=== PATIENT | male | born 1990 | race Two or more races ===

== ENCOUNTER 2023-03-28 09:58 | Emergency (ER) | payer OTHER, SELFPAY ==
[2023-03-28 10:06] VITALS: BP 125/75; PULSE 69; RESP 16; TEMP 37.4; O2SAT 99; BMI 28.5
--- NOTE | 2023-03-28 10:13 | ECG_ITS ---
Test Reason : dizziness Blood Pressure : / mmHG Vent. Rate : 065 BPM Atrial Rate : 065 BPM P-R Int : 178 ms QRS Dur : 092 ms QT Int : 368 ms P-R-T Axes : 054 075 053 degrees QTc Int : 382 ms Normal sinus rhythm Normal ECG When compared with ECG of 03-FEB-2008 02:36, No significant change was found Referred By: Generic ED Physician Electronically Signed By:PRASHANT CLEMENTS
[2023-03-28 10:28] LABS: MANUAL DIFF FLAG NO
[2023-03-28 10:30] LABS: Basophils Percent Auto 0.5 % (0-2); Eosinophils Absolute Auto 0.2 X10*3/uL (0.0-0.4); Eosinophils Percent Auto 2.3 % (0-4); Hematocrit 42.9 % (42.0-52.0); Hemoglobin 14.7 g/dl (14.0-18.0); Imm Gran Abs Auto 0.03 X10*3/uL (0.00-0.03); Imm Gran Pct Auto 0.4 % (0.0-0.4); Lymphocytes Absolute Auto 1.7 X10*3/uL (1.2-4.9); Lymphocytes Percent Auto 22.3 % (20-40); Mean Corpuscular HGB Conc 34.3 g/dl (31.0-36.0); Mean Corpuscular Hemoglobin 30.3 pg (27.0-33.0); Mean Corpuscular Volume 88.5 fL (80.0-98.0); Mean Platelet Volume 8.9 fL (9.4-12.4); Monocytes Absolute Auto 0.6 X10*3/uL (0.1-1.2); Monocytes Percent Auto 7.7 % (2-11); Neutrophils Absolute Auto 4.9 x10*3/uL (2.0-8.3); Neutrophils Percent Auto 66.8 % (45-73); Platelet Count 255 X10*3/uL (160-400); Red Blood Count 4.85 X10*6/uL (4.60-5.80); Red Cell Distribution Width 12.2 % (11.0-16.0); White Blood Count 7.4 X10*3/uL (4.8-10.8)
--- NOTE | 2023-03-28 10:33 | ED_ITS ---
HPI - Dizziness General Chief Complaint: Dizziness Stated Complaint: dizziness Time Seen by Provider: 03/28/23 10:26 Source: patient Mode of arrival: ambulatory Limitations: no limitations History of Present Illness HPI Narrative: 32-year-old male with no past medical history presents to ED today for 1-day history of dizziness. Patient states he woke up yesterday and went to get up when the dizziness began. Episodes last 10 seconds. Reports that it is worse with positional changes, such as laying down and turning on his side. Reports double vision when episodes occur. Reports postocular headache. Denies any p hotophobia, syncope, tinnitus, or pressure in his ears. Denies recent swimming. Reports that this is the first time this has happened to him. MD elicited complaint: dizziness, difficulty walking and vertigo Onset (ago): day(s) Timing: sudden onset, awoke with symptoms and intermittent Description: room spinning , off-balance and difficulty walking Context: change in body position History of similar symptoms: No Exacerbating factors: change in body position, keeping eyes closed and position/lying down Relieving factors: remaining still Associated symptoms: denies other symptoms Associated neuro symptoms: diplopia and vision changes Related Data Previous Rx's Medication Instructions Recorded meclizine 25 mg tablet 25 mg PO TID PRN dizziness #10 tabs 03/28/23 Allergies Allergy/AdvReac Type Severity Reaction Status Date / Time No Known Allergies Allergy Verified 03/28/23 10:05 [facility] Social History Social History Advance Directives: No Advance Directives Information Provided: No Physical Exam Vital Signs: Vital Signs: Last Vital Signs Temp 99.4 F 03/28/23 10:06 Pulse 69 03/28/23 10:06 Resp 16 03/28/23 10:06 BP 125/75 03/28/23 10:06 Pulse Ox 99 03/28/23 10:06 O2 Del Method Room Air 03/28/23 10:06 BMI result Body Mass Index 28.5 Const: General: cooperative, healthy appearing, comfortable and no acute distress Orientation/consciousness: patient oriented x3 Limitations: no limitations HEENT: Head: Yes normal to inspection, Yes normocephalic and Yes atraumatic Ears: hearing grossly normal bilaterally Face and sinus: Yes normal facial exam Eyes: General: appearance normal, both eyes and all related structures Pupils: Equal, round and reactive pupils present EOM: EOMs intact bilaterally Direct Ophthalmoscopy: normal light reflex and no photophobia Resp: Effort & Inspection: normal respiratory effort and able to speak in complete sentences Cardio: Rate: regular rate Rhythm: regular rhythm Neuro: General: patient oriented x3 Cranial nerves: Yes CN's II-XII intact bilaterally, Yes Equal, round and reactive pupils present and Yes Nystagmus not present Cognition (Neuro): normal cognition Coordination: [id number] test normal and [id number] test normal Course Course Course Narrative: Obtained EKG. Obtained labs including CBC with differential, chemistry. Performed Kimi maneuver. Prescribed meclizine for dizziness. Provided information about vertigo and ways to minimize dizziness. Provided excuse note for work. Medical Decision Making Medical Decision Making [facility] Narrative: 32-year-old with no past medical history presents with 1 day history of dizziness. Physical exam including neurological exam was unremarkable. Obtained EKG and baseline labs to rule out any arrhythmia, anemia, electrolyte imbalance or dehydration. Obtained urinalysis to rule out infection. lab workup and EKG unremarkable. no nystagmus. Eply performed. no current symptoms stable for discharge home w/ PRN meclizine Differential Diagnosis Differential Diagnoses: The differential diagnosis associated with the presentation includes BPPV, central vertigo, viral syndrome, dehydration, anemia, less likely, cerebel lar stroke, hypotension, atrial fibrillation Lab Data [facility] Lab Attestation statement: I reviewed the patient's lab results. no anemia 03/28/23 10:24 03/28/23 10:24 Labs: Lab Results 03/28/23 03/28/23 03/28/23 Range/Units 10:24 10:24 11:20 WBC 7.4 (4.8-10.8) X10*3/uL RBC 4.85 (4.60-5.80) X10*6/uL Hgb 14.7 (14.0-18.0) g/dl Hct 42.9 (42.0-52.0) % MCV 88.5 (80.0-98.0) fL MCH 30.3 (27.0-33.0) pg MCHC 34.3 (31.0-36.0) g/dl RDW 12.2 (11.0-16.0) % Plt Count 255 (160-400) X10*3/uL MPV 8.9 L (9.4-12.4) fL Immature Gran % (Auto) 0.4 (0.0-0.4) % Neut % (Auto) 66.8 (45-73) % Lymph % (Auto) 22.3 (20-40) % [place] % (Auto) 7.7 (2-11) % Eos % (Auto) 2.3 (0-4) % Baso % (Auto) 0.5 (0-2) % Lymph # (Auto) 1.7 (1.2-4.9) X10*3/uL [place] # (Auto) 0.6 (0.1-1.2) X10*3/uL Eos # (Auto) 0.2 (0.0-0.4) X10*3/uL Baso # (Auto) 0.0 (0.0-0.2) X10*3/uL Abs Immat Gran (auto) 0.03 (0.00-0.03) X10*3/uL Absolute Neuts (auto) 4.9 (2.0-8.3) x10*3/uL Absolute Nucleated RBC 0.000 (0.0-0.012) X10*3/uL Nucleated RBC % (auto) 0.0 (0.0-0.2) /100WBC Sodium 140 (135-145) mmol/L Potassium 4.1 (3.3-5.1) mmol/L Chloride 107 (96-108) mmol/L Carbon Dioxide 27 (22-29) mmol/L Anion Gap 10 L (12-20) BUN 19 H (9-16) mg/dL Creatinine 1.09 (0.5-1.4) mg/dL Estim Creat Clear Calc 104.6 Estimated GFR > 60 Random Glucose 97 (60-115) mg/dL Calcium 9.3 (8.4-10.2) mg/dL Total Bilirubin 0.6 (0.0-1.0) mg/dL AST 23 (5-37) U/L ALT 31 (0-40) U/L Alkaline Phosphatase 84 (39-117) U/L Total Protein 7.2 (6.5-8.0) g/dL Albumin 4.2 (3.5-5.0) g/dL Urine Color Yellow Urine Appearance Clear Urine pH 7.0 (5.0-9.0) Ur Specific Solomon 1.015 (1.005-1.025) Urine Protein Negative (Neg-Trace) mg/dL Urine Glucose (UA) Negative (Negative) mg/dL Urine Ketones Negative (Negative) mg/dL Urine Blood Negative (Negative) Urine Nitrite Negative (Negative) Ur Leukocyte Esterase Negative (Negative) Independent Interpretation I performed an independent interpretation of an: EKG Interpretation: ekg with normal sinus rhythm, HR 65 bpm, peaked t waves in the precordial leads similar to prior, no ST segment elevations or depressions Tests considered The following testing was considered but not selected: considered CT scan of the head, but exam unremarkable Prescription Management I considered prescription management with: Other (meclizine) Critical Care Time Critical Care Time Critical Care Time: No Discharge Plan Discharge Clinical Impression: Dizziness Patient Disposition: Home, Self-Care Instructions: Vertigo (DC), Dizziness (ED) Additional Instructions: your lab workup was unremarkable rest and stay hydrated when you change positions, do so slowly take the prescribed medication if you experience recurrent dizzinesss If you develop new or worsening symptoms call 911 or come back to the ER for further evaluation. Prescriptions: New meclizine 25 mg tablet 25 mg PO TID PRN (Reason: dizziness) Qty: 10 0RF Referrals: Francia Lisa MD [Primary Care Provider] - Stand Alone Forms: Work/School Release Interventions: ED Discharge Assessment Last Done: 03/28/23 11:26 Discharge Date/Time: 03/28/23 11:28
[2023-03-28 10:59] LABS: Alanine Aminotransferase 31 U/L (0-40); Albumin Level 4.2 g/dL (3.5-5.0); Alkaline Phosphatase 84 U/L (39-117); Anion Gap 10 (12-20); Aspartate Amino Transferase 23 U/L (5-37); Bilirubin Total 0.6 mg/dL (0.0-1.0); Blood Urea Nitrogen 19 mg/dL (9-16); Calcium 9.3 mg/dL (8.4-10.2); Carbon Dioxide 27 mmol/L (22-29); Chloride 107 mmol/L (96-108); Creatinine Clr Calc Pharmacy 104.6; Estimated Glomerular Filt Rate > 60; Glucose Random 97 mg/dL (60-115); Potassium 4.1 mmol/L (3.3-5.1); Sodium 140 mmol/L (135-145); Total Protein 7.2 g/dL (6.5-8.0)
--- NOTE | 2023-03-28 11:23 | MHC.EDTECH ---
Urine collected and sent to lab
[2023-03-28 11:34] LABS: Appearance Urine Clear; Color Urine Yellow; Glucose Urine UA Negative (Negative); Leukocyte Esterase Urine Negative (Negative); Nitrite Urine Negative (Negative); Specific Gravity - Urine 1.015 (1.005-1.025); Urine Blood Negative (Negative); Urine Ketones Negative (Negative); Urine Protein Negative (Neg-Trace)
== END 2023-03-28 11:28 | disposition home or self-care (01) ==
PROVIDERS: Emergency Provider Emergency Medicine; PCP Internal Medicine
DX: R42 Dizziness and giddiness (principal); H53.2 Diplopia; Z79.899 Other long term (current) drug therapy
CPT/HCPCS: 36415; 80053; 81003; 85025; 93005; 99283

== ENCOUNTER 2024-09-24 14:13 | Outpatient (AMB) | payer OTHER, SELFPAY ==
--- NOTE | 2024-09-24 14:44 | A.OFFPC_ITS ---
Vital Signs 09/24/24 14:46 Height 5 ft 7.52 in Weight 197 lb 4 oz BMI 30.4 BP 110/66 Blood Pressure Location Lt brachial Position Sitting Pulse 70 Pulse Source Pulse Oximeter Temp 97.3 F Temp Source Temporal Artery Scan Pulse Oximetry (%) 100 Oxygen Delivery Method Room Air Intake Visit Reasons: establish care Intake Note: Patient is a new patient here to establish care for Wellness Visit. Transferring care from Unknown. Medical records have not been requested and have not received. [employer] Required: No Inspector: Not Required per policy Accompanied by: Self / Same As Patient Allergies No Known Allergies Allergy (Verified 09/24/24 15:18) Medication List - Last Reconciled 09/24/24 by Ana Estevez PA-C No Known Home Meds Tobacco use date assessed: 09/24/24 Dental Screening Dental Screen Date: 09/24/24 Did you have a dental visit in the last 12 months?: Yes Did you have a dental problem in the last 6 months where you did not have access to dental care?: No Was dental information given to patient?: Patient has dentist HPI establish care HPI Details 33 year old male coming to the office fo r the first time. Patient tells us today he was previoulsy [place] [facility] [place] and has not been seen in the meatime. He does smoke cigarettes and has been cutting back is now down to 1/2 pack per day down from 2 packs per day. He has been using mints to break his habit. He does have a few concerns today the first being congestion and runny nose which started after he moved here from [place]. He has been using topical decongestants daily for this concern. He also mentioned having difficulty sleeping and has been using melatonin without good relief. He does work nights so he finds it difficult to fall asleep when he gets home. 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 1. Little interest or pleasure in doing things: not at all 2. Feeling down, depressed, or hopeless: not at all 3. Trouble falling or staying asleep, or sleeping too much: not at all 4. Feeling tired or having little energy: not at all 5. Poor appetite or overeating: not at all 6. Feeling bad about yourself - or that you are a failure or have let yourself or your family down: not at all 7. Trouble concentrating on things, such as reading the newspaper or watching television: not at all 8. Moving or speaking so slowly that other people could have noticed. Or the opposite - being so fidgety or restless that you have been moving around a lot more than usual: not at all 9. Thoughts that you would be better off or of hurting yourself in some way: not at all Total score: 0 Depression Screening Interpretation: Negative Depression Screening Done: Yes Source: Developed by Drs. Tony Anna, Patricia Ibarra, Robson Gómez and colleagues, with an educational tomer from [employer]. Thrive Questionnaire Date Thrive assessed: 09/24/24 I am a: Patient What is your living situation today?: I have a steady place to live Within the past 12 months, did the food you bought not last and you didn't have the money to get more?: Never true Within the past 12 months, did you worry whether your food would run out before you got money to buy more?: Never true Do you have trouble paying for medicines?: No Do you have trouble getting transportation to medical appointments?: No Do you have trouble paying your heating and electricity bill?: No Do you have trouble taking care of your child, family member or friend?: No Do you have trouble with day-to-day activities such as bathing, preparing meals, shopping, managing finances, etc.?: No Are you currently unemployed and looking for a job?: Yes Are you interested in more education?: No Please select the resources that you would like help with: None Currently or been in a relationship where the following occur: I choose not to answer THRIVE Score: 0 AUDIT C Alcohol Use Questionnaire (AUDIT-C) 1. How often do you have a drink containing alcohol?: 2-4 times a month 2. How many drinks containing alcohol do you have on a typical day when you are drinking?: 3 or 4 3. How often do you have six or more drinks on one occasion?: Monthly Total Score: 5 Score Reviewed/Action Taken: Yes GWEN-7 AMB Questionnaire GWEN-7 Date GWEN - 7 assessed: 09/24/24 Feeling nervous, anxious, or on edge: 0 = Not at all Not being able to stop or control worryin = Not at all Worrying too much about different things: 0 = Not at all Trouble relaxin = Not at all Being so restless that it is hard to sit still: 0 = Not at all Becoming easily annoyed or irritable: 0 = Not at all Feeling afraid as if something awful might happen: 0 = Not at all Total GWEN-7 score (0-4 normal; 5-9 mild; 10-14 moderate; 15-21 severe): 0 Source: Developed by Drs. Tony Anna, Patricia Ibarra, Robson Gómez and colleagues, with an educational tomer from [employer]. Review of Systems Const Denies body aches, Denies chills, Reports fatigue, Denies fever(s), Denies headache(s) and Denies poor appetite Eyes Reports no additional complaints ENT Denies dysphagia, Denies dizziness, Denies headache(s), Reports nasal congestion, Reports nasal discharge, Denies odynophagia and Reports post nasal drip Card Denies chest pain, Denies syncope, Denies edema, Denies irregular heart rhythm, Denies lightheadedness and Denies dyspnea Resp Denies cough and Denies dyspnea GI Denies abdominal pain, Denies dysphagia, Reports heartburn, Denies nausea, Denies odynophagia and Denies vomiting Reports no additional complaints Musc Reports no additional complaints and Denies abnormal gait Skin/Breast Reports system reviewed and no additional complaints, except as documented Neuro Denies abnormal gait, Denies dizziness, Denies syncope and Denies headache(s) Psych Reports no additional complaints Endo Reports fatigue Physical exam (Primary Care) Vital Signs: Last Vital Signs Temp 97.3 F 09/24/24 14:46 Pulse 70 09/24/24 14:46 BP 110/66 09/24/24 14:46 Pulse Ox 100 09/24/24 14:46 Oxygen Delivery Method Room Air 09/24/24 14:46 BMI result Body Mass Index 30.4 Tobacco/Smoking Status: Tobacco use Status Tobacco use date assessed 09/24/24 09/24/24 14:54 Patient Tobacco Use Status Current everyday Tobacco 09/24/24 14:54 Tobacco use type Cigarette 09/24/24 14:54 e-Cigarette/Vaping Use Never Used 09/24/24 14:54 Tobacco cessation counseling provided: Yes Items discussed: Nicotine replacement Relapse Prevention: discussed extending NRT and discussed dietary, exercise and/or lifestyle changes Number of minutes spent counselin CPT code: 68305 - 4-10 Minutes PHQ-9: PHQ-9 Score PHQ-9: Total score 0 09/24/24 15:14 Depression Screening Interpretation: Negative Thrive Assessment: Date of Thrive Assessment Date Thrive assessed 09/24/24 09/24/24 14:54 Currently or been in a relationship where the following occur: I choose not to answer Const General: cooperative, healthy appearing, comfortable and no acute distress Orientation/consciousness: patient oriented x3 HENMT Head: Yes normocephalic Ears: hearing grossly normal bilaterally General nose exam: Normal external nose present Eyes General: appearance normal, both eyes and all related structures Conjunctivae: conjunctivae normal Neck Neck: Yes full ROM and Yes no lymphadenopathy Resp Effort & Inspection: normal respiratory effort Auscultation: clear to auscultation bilaterally, no crackles, no rales, no rhonchi and no wheezes Cardio Rate: regular rate Rhythm: regular rhythm Skin General skin exam: no rashes or lesions noted Neuro General: patient oriented x3 Gait exam (Neuro): Normal gait present Extrem General: Yes normal to inspection, Yes full ROM and No edema Psych Affect: normal affect Attitude: cooperative Insight: Good insight present (Psych) Judgement: Good judgement present (Psych) Coding Level of Care Code New Pt Level 4 (84241) Diagnoses Tobacco abuse Z72.0 Sinus congestion R09.81 GERD (gastroesophageal reflux disease) K21.9 Screening for hypercholesterolemia Z13.220 Insomnia G47.00 Additional Codes Vital Signs *Quality* - CPT code: 69504 - 4-10 Minutes ([id number]) Assessment & Plan Assessment & Plan (1) Tobacco abuse: Code(s): Z72.0 - Tobacco use Category: Medical Plan: Smoking cigarettes and the use of tobacco can be harmful. We discussed the importance of stopping and options to aid in smoking cessation. Plan to try nicotine gum as replacement therapy. (2) Sinus congestion: Code(s): R09.81 - Nasal congestion Category: Medical Plan: Advised patient to discontinue the use of topical decongestants as it is not ad vised to use this more than 3 days at a time. Plan to start on Zyrtec and Flonase daily and can consider referral to ear nose and throat or blanket inspector. (3) GERD (gastroesophageal reflux disease): Code(s): K21.9 - Gastro-esophageal reflux disease without esophagitis Category: Medical Plan: Avoid trigger foods such as citrus, tomato products, soda, caffeine, spicy foods and other foods that may be irritating to your stomach. Avoid laying flat 3-4 hours after eating and elevate the head of the bed 30 degrees to prevent acid from moving into the esophagus. Continue on Tums as needed. (4) Screening for hypercholesterolemia: Code(s): Z13.220 - Encounter for screening for lipoid disorders Category: Medical Plan: Orders placed. (5) Insomnia: Code(s): G47.00 - Insomnia, unspecified Category: Medical Plan: Patient having difficulty falling asleep states he has difficulty ?quieting his mind?. Plan to try hydroxyzine as needed at bedtime for sleep. Plan Blood work ordered plan to follow up in 3 months for annual exam. This note was constructed using voice recognition software. While every effort has been made to ensure accuracy and decorating supervisor, still areas may have been included sometimes these areas may affect the content or meeting of the given symptoms. Total time spent caring for the patient today was 30 minutes. This includes time spent before the visit reviewing the chart, time spent during the visit, and time spent after the visit and documentation. Orders: Orders Comprehensive Met. Panel 09/24/24 Z00.00 - Encounter for general adult medical examination without abnormal findings Free T4 (Free Thyroxine) 09/24/24 Z00.00 - Encounter for general adult medical examination without abnormal findings Complete Blood Count Auto Diff 09/24/24 Z00.00 - Encounter for general adult medical examination without abnormal findings TSH reflex Free T4 09/24/24 Z00.00 - Encounter for general adult medical examination without abnormal findings Vitamin B12 and Folate 09/24/24 Z00.00 - Encounter for general adult medical examination without abnormal findings Vitamin D 25-OH Total 09/24/24 Z00.00 - Encounter for general adult medical examination without abnormal findings Lipid Panel 09/24/24 Z13.220 - Encounter for screening for lipoid disorders Medications: New nicotine (polacrilex) 2 mg buccal Q8H PRN 72 ea 0RF nicotine cravings hydroxyzine HCl 25 mg PO BEDTIME 30 tabs 1RF fluticasone propionate 50 mcg/actuation (Flonase Allergy Relief) administer into each nostril 1 spray intranasal DAILY 16 grams 1RF fexofenadine 180 mg PO DAILY 90 tabs 0RF Discontinued meclizine Discontinued Reason: Patient Completed Course 25 mg PO TID PRN 10 tabs 0RF dizziness
[2024-09-24 14:46] VITALS: BP 110/66; PULSE 70; TEMP 36.3; O2SAT 100; BMI 30.4
== END 2024-09-24 15:35 | disposition home or self-care (01) ==
DX: Z72.0 Tobacco use (principal); R09.81 Nasal congestion; K21.9 Gastro-esophageal reflux disease without esophagitis; Z13.220 Encounter for screening for lipoid disorders; G47.00 Insomnia, unspecified

== ENCOUNTER 2024-11-19 09:31 | Outpatient (REF) | payer OTHER, SELFPAY ==
[2024-11-19 09:44] LABS: MANUAL DIFF FLAG NO
[2024-11-19 09:59] LABS: Basophils Percent Auto 0.5 % (0-2); Eosinophils Absolute Auto 0.3 X10*3/uL (0.0-0.4); Eosinophils Percent Auto 3.3 % (0-4); Hematocrit 43.9 % (42.0-52.0); Hemoglobin 14.5 g/dl (14.0-18.0); Imm Gran Abs Auto 0.02 X10*3/uL (0.00-0.03); Imm Gran Pct Auto 0.3 % (0.0-0.4); Lymphocytes Absolute Auto 2.6 X10*3/uL (1.2-4.9); Lymphocytes Percent Auto 33.7 % (20-40); Mean Corpuscular Hemoglobin 29.6 pg (27.0-33.0); Mean Corpuscular Volume 89.6 fL (80.0-98.0); Mean Platelet Volume 9.1 fL (9.4-12.4); Monocytes Absolute Auto 0.7 X10*3/uL (0.1-1.2); Monocytes Percent Auto 9.2 % (2-11); Neutrophils Absolute Auto 4.1 x10*3/uL (2.0-8.3); Platelet Count 258 X10*3/uL (160-400); Red Cell Distribution Width 12.3 % (11.0-16.0); White Blood Count 7.8 X10*3/uL (4.8-10.8)
[2024-11-19 10:47] LABS: Alanine Aminotransferase 46 U/L (0-40); Albumin Level 4.3 g/dL (3.5-5.0); Alkaline Phosphatase 87 U/L (39-117); Anion Gap 12 (12-20); Aspartate Amino Transferase 30 U/L (5-37); Bilirubin Total 0.4 mg/dL (0.0-1.0); Blood Urea Nitrogen 25 mg/dL (9-16); Calcium 9.4 mg/dL (8.4-10.2); Carbon Dioxide 27 mmol/L (22-29); Chloride 107 mmol/L (96-108); Cholesterol 177 mg/dL (<200); Estimated Glomerular Filt Rate > 60; Glucose Random 99 mg/dL (60-115); HDL Cholesterol 41 mg/dL (>40); LDL Cholesterol Calculated 113 mg/dL (<100); Potassium 4.3 mmol/L (3.3-5.1); Sodium 142 mmol/L (135-145); Total Protein 6.9 g/dL (6.5-8.0); Triglycerides 116 mg/dL (<150)
[2024-11-19 10:55] LABS: Free T4 (Free Thyroxine) 0.92 ng/dL (0.71-1.85); TSH reflex Free T4 0.54 uIU/mL (0.32-4.0); Vitamin D 25-OH Total 29.5 ng/mL (>30)
[2024-11-19 11:14] LABS: Folate 12.4 ng/mL (> or = 4.0); Vitamin B12 1063 pg/mL (200-900)
== END 2024-11-19 09:32 | disposition home or self-care (01) ==
LOC: HO.LAB 09:31
DX: Z00.00 Encounter for general adult medical examination without abnormal findings (principal); Z13.220 Encounter for screening for lipoid disorders; Z13.6 Encounter for screening for cardiovascular disorders
CPT/HCPCS: 36415; 80053; 80061; 82306; 82607; 82746; 84439; 84443; 85025

== ENCOUNTER 2024-12-25 14:43 | Outpatient (AMB) | payer OTHER, SELFPAY ==
--- NOTE | 2024-12-25 14:46 | MHC.PC.OV ---
Vital Signs 12/25/24 14:47 Height 5 ft 7.52 in Weight 187 lb 8 oz BMI 28.9 BP 126/72 Blood Pressure Location Lt brachial Position Sitting Pulse 75 Pulse Source Pulse Oximeter Temp 97.3 F Temp Source Temporal Artery Scan Pulse Oximetry (%) 98 Oxygen Delivery Method Room Air Intake Visit Reasons: annual exam Intake Note: Patient is here today for a physical. 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: No Child Support Case Officer: Not Required per policy Accompanied by: Self / Same As Patient Allergies No Known Allergies Allergy (Verified 12/25/24 14:50) Medication List - Last Reconciled 12/25/24 by Ana Estevez PA-C cholecalciferol (vitamin D3) 25 mcg PO DAILY fexofenadine 180 mg PO DAILY fluticasone propionate 50 mcg/actuation 1 spray intranasal DAILY hydroxyzine HCl 25 mg PO BEDTIME nicotine (polacrilex) 2 mg buccal Q8H PRN Tobacco use date assessed: 12/25/24 Dental Screening Dental Screen Date: 09/24/24 HPI annual exam HPI Details 34-year-old male with past medical history of GERD, tobacco abuse, insomnia last seen 09/2024 coming in for annual exam. Presenting for an annual examination with several ongoing health concerns. His primary complaint includes chronic low back pain, which has worsened recently, leading to numbness and tingling in the legs and impacting work and daily activities. He has made dietary changes to facilitate weight loss, losing 10 pounds since the previous visit. The patient admits to a history of smoking, though he has reduced his intake with the help of nicotine lozenges. Laboratory findings indicate slightly elevated cholesterol and liver enzymes. The patient experiences sleep disturbances, which he correlates with leg pain. He is managing gastroesophageal reflux disease effectively with Prilosec and denies other gastrointestinal symptoms. 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 Cognitive needs: No Hearing needs: No Vision needs: No Questionnaire Thrive Questionnaire Date Thrive assessed: 09/24/24 I am a: Patient What is your living situation today?: I have a steady place to live Within the past 12 months, did the food you bought not last and you didn't have the money to get more?: Never true Within the past 12 months, did you worry whether your food would run out before you got money to buy more?: Never true Do you have trouble paying for medicines?: No Do you have trouble getting transportation to medical appointments?: No Do you have trouble paying your heating and electricity bill?: No Do you have trouble taking care of your child, family member or friend?: No Do you have trouble with day-to-day activities such as bathing, preparing meals, shopping, managing finances, etc.?: No Are you currently unemployed and looking for a job?: Yes Are you interested in more education?: No Please select the resources that you would like help with: None Currently or been in a relationship where the following occur: I choose not to answer THRIVE Score: 0 GWEN-7 AMB Questionnaire GWEN-7 Date GWEN - 7 assessed: 09/24/24 Source: Developed by Drs. Tony Anna, Patricia Ibarra, Robson Gómez and colleagues, with an educational tomer from [employer] Review of Systems Const Denies body aches, Denies fatigue, Denies fever(s), Denies frequent falls, Denies headache(s) and Denies weakness Eyes Reports no additional complaints and Denies change in vision ENT Denies dizziness, Denies facial pain, Denies headache(s) and Denies nasal congestion Card Denies chest pain, Denies syncope, Denies irregular heart rhythm, Denies leg edema, Denies lightheadedness and Denies dyspnea Resp Denies cough and Denies dyspnea GI Denies abdominal pain, Denies constipation, Reports dyspepsia, Reports heartburn, Denies diarrhea, Denies nausea and Denies vomiting Denies dysuria, Denies urinary frequency, Denies urinary hesitancy and Denies urinary urgency Musc Reports as per HPI, Reports back pain and Denies myalgias Skin/Breast Reports system reviewed and no additional complaints, except as documented Neuro Denies dizziness, Denies syncope, Denies frequent falls, Denies headache(s) and Denies weakness Psych Reports no additional complaints Endo Denies fatigue Physical exam (Primary Care) Vital Signs: Last Vital Signs Temp 97.3 F 12/25/24 14:47 Oxygen Delivery Method Room Air 12/25/24 14:47 BMI result Body Mass Index 28.9 Tobacco/Smoking Status: Tobacco use Status Tobacco use date assessed 09/24/24 09/24/24 15:34 Patient Tobacco Use Status Current everyday Tobacco 09/24/24 15:34 Tobacco use type Cigarette 09/24/24 15:34 e-Cigarette/Vaping Use Never Used 09/24/24 15:34 Thrive Assessment: Date of Thrive Assessment Date Thrive assessed 09/24/24 09/24/24 15:34 Currently or been in a relationship where the following occur: I choose not to answer Const General: cooperative, healthy appearing, comfortable and no acute distress Orientation/consciousness: patient oriented x3 HENMT Head: Yes normocephalic Ears: hearing grossly normal bilaterally, external ears normal, TM's normal bilaterally and EAC's normal General nose exam: Normal external nose present Face and sinus: Yes normal facial exam and Yes sinuses nontender Mouth: Normal oral and palatal mucosa present and tongue normal Throat: Yes posterior oropharynx normal Eyes General: appearance normal, both eyes and all related structures Conjunctivae: conjunctivae normal Pupils: Equal, round and reactive pupils present EOM: EOMs intact bilaterally and No Nystagmus present Neck Neck: Yes normal visual inspection, Yes full ROM and Yes no lymphadenopathy Chest Chest palpation & inspection: normal inspection of the chest Resp Effort & Inspection: normal respiratory effort Auscultation: clear to auscultation bilaterally, no crackles, no rales, no rhonchi, no wheezes and breath sounds present Cardio Rate: regular rate Rhythm: regular rhythm Peripheral pulses: radial pulses present and dorsalis pedis present GI Inspection: Yes normal to inspection and No Abdominal wall edema Palpation (GI): Soft to palpation, not firm and nontender Auscultation: normal bowel sounds Rectal Exam - Male: Yes deferred General: Yes no CVA tenderness Back/Spine/Pelvis Other: Tenderness to palpation over lumbar spine and bilateral paraspinal muscles. Positive right straight leg raise test. Intact strength and sensation of bilateral lower extremities. Neurovascularly intact in bilateral lower extremities Back: no CVA tenderness Skin General skin exam: no rashes or lesions noted Neuro General: patient oriented x3 Cranial nerves: Yes Equal, round and reactive pupils present, Yes Midline tongue present, Yes Ability to bilaterally elevate shoulders present and No Nystagmus present Gait exam (Neuro): Normal gait present Extrem General: Yes normal to inspection, Yes full ROM, No no pedal edema and No edema Psych Speech and movement: Normal speech and movement present Affect: normal affect Insight: Good insight present (Psych) Judgement: Good judgement present (Psych) Coding Level of Care Code Est Pt Level 3 (36968) Est Pt Prev Care 18-39y(00556) Diagnoses Annual physical exam Z00.00 Tobacco abuse Z72.0 GERD (gastroesophageal reflux disease) K21.9 Insomnia G47.00 Low back pain M54.50 Elevated LFTs R79.89 Assessment & Plan Assessment & Plan (1) Annual physical exam: Code(s): Z00.00 - Encounter for general adult medical examination without abnormal findings Category: Medical Plan: Patient is up-to-date on all recommended routine screenings and vaccinations for his age. Blood work is up-to-date and has been reviewed with the patient today. (2) Tobacco abuse: Code(s): Z72.0 - Tobacco use Category: Medical Plan: Smoking cigarettes and the use of tobacco can be harmful. We discussed the importance of stopping and options to aid in smoking cessation. Plan to try nicotine gum as replacement therapy. (3) GERD (gastroesophageal reflux disease): Code(s): K21.9 - Gastro-esophageal reflux disease without esophagitis Category: Medical Plan: Avoid trigger foods such as citrus, tomato products, soda, caffeine, spicy foods and other foods that may be irritating to your stomach. Avoid laying flat 3-4 hours after eating and elevate the head of the bed 30 degrees to prevent acid from moving into the esophagus. Prescription sent for omeprazole 20 mg as he has been using [id number] Prilosec. Discussed the appropriate way to take this medication. Strongly advised to stop smoking (4) Insomnia: Code(s): G47.00 - Insomnia, unspecified Category: Medical Plan: Patient was previously using hydroxyzine did not find this beneficial. He has stating that the majority of insomnia comes from low back pain keeping him up at night. Plan to initiate cyclobenzaprine for nighttime pain. Continue to monitors insomnia (5) Low back pain: Code(s): M54.50 - Low back pain, unspecified Category: Medical Plan: Patient having chronic low back pain which he manages with 10s unit. Plan to obtain lumbar spine x-ray for further evaluation and referral was placed to pain management as well. Prescription was sent for cyclobenzaprine to be used only at bedtime and advised patient he can not drive on this medication. Prescription was also sent for lidocaine patches for daytime pain. (6) Elevated LFTs: Code(s): R79.89 - Other specified abnormal findings of blood chemistry Category: Medical Plan: Plan to repeat liver labs. Plan I encouraged the patient to improve hydration to mitigate dehydration effects and enhance kidney function. His low back pain with sciatica symptoms will be evaluated further with diagnostic imaging, and I've planned a referral to Pain Management for potential interventional treatments like injections. I advised that physical therapy could ultimately offer benefits if he's amenable to it. For sleep disturbances, which appear related to pain, I prescribed a muscle relaxer for nighttime use, ensuring it fits within his work constraints. The patient's GERD is well-managed on his current Prilosec prescription, scheduled for daily use to ensure efficacy. Smoking cessation efforts should continue, emphasizing his progress with nicotine lozenges. I will monitor his liver enzymes and cholesterol more closely. Follow-up visits should align with these therapeutic assessments. This note was constructed using voice recognition software. While every effort has been made to ensure accuracy and porcelain slusher, still areas may have been included sometimes these areas may affect the content or meeting of the given symptoms. Total time spent caring for the patient today was 30 minutes. This includes time spent before the visit reviewing the chart, time spent during the visit, and time spent after the visit and documentation. Orders: Orders XR lumbar spine 2-3V Today M54.50 - Low back pain, unspecified Liver Panel Today R79.89 - Other specified abnormal findings of blood chemistry Referrals Pain Management Referral M54.50 - Low back pain, unspecified Medications: New cyclobenzaprine 5 mg PO BEDTIME 30 tabs 0RF omeprazole 20 mg PO DAILY 90 caps 1RF lidocaine 5% leave on most painful area for up to 12 hrs 1 patch topical DAILY 30 ea 0RF Discontinued hydroxyzine HCl Discontinued Reason: Patient no longer taking 25 mg PO BEDTIME 90 tabs 1RF
[2024-12-25 14:47] VITALS: BP 126/72; PULSE 75; TEMP 36.3; O2SAT 98; BMI 28.9
== END 2024-12-25 15:36 | disposition home or self-care (01) ==
LOC: HO.HMCH 14:44
DX: Z00.00 Encounter for general adult medical examination without abnormal findings (principal); K21.9 Gastro-esophageal reflux disease without esophagitis; Z72.0 Tobacco use; G47.00 Insomnia, unspecified; M54.50 Low back pain, unspecified; R79.89 Other specified abnormal findings of blood chemistry

== ENCOUNTER 2025-06-21 18:17 | Emergency (ER) | payer OTHER, SELFPAY ==
--- NOTE | ~2025-06-21 | CT_ITS ---
CLINICAL HISTORY: LLQ tender, rebound CT abdomen and pelvis with contrast Comparison: None provided Findings: Lung bases clear. No acute bony abnormalities. Liver and spleen within normal limits. Pancreas and adrenal glands unremarkable. Gallbladder is within normal limits. No significant focal renal abnormalities. No renal stones or hydronephrosis. Abdominal aorta is normal in caliber. No free fluid or adenopathy in the pelvis. No diverticulitis. Appendix unremarkable. Impression: No acute process This document has been electronically signed by: Jose Randhawa MD on 06/21/2025 22:26:51
[2025-06-21 18:55] VITALS: BP 133/86; PULSE 77; RESP 20; TEMP 37.2; O2SAT 99; BMI 28.7
[2025-06-21 19:39] LABS: Hematocrit 42.2 % (42.0-52.0); Hemoglobin 14.6 g/dl (14.0-18.0); Imm Gran Abs Auto 0.03 X10*3/uL (0.00-0.03); Imm Gran Pct Auto 0.2 % (0.0-0.4); Lymphocytes Absolute Auto 2.2 X10*3/uL (1.2-4.9); MANUAL DIFF FLAG NO; Mean Corpuscular HGB Conc 34.6 g/dl (31.0-36.0); Mean Corpuscular Hemoglobin 30.1 pg (27.0-33.0); Mean Corpuscular Volume 87.0 fL (80.0-98.0); NRBC Abs Auto 0.000 X10*3/uL (0.0-0.012); NRBC Pct Auto 0.0 /100WBC (0.0-0.2); Platelet Count 258 X10*3/uL (160-400); Red Blood Count 4.85 X10*6/uL (4.60-5.80); White Blood Count 12.0 X10*3/uL (4.8-10.8)
--- NOTE | 2025-06-21 19:40 | ED.GENADULT ---
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 Pain worsens when the truck is bouncing. Associated symptoms include nausea, one episode of non-bloody emesis around midnight two days ago, chills (?wakes up freezing?), decreased appetite, and recent upper respiratory symptoms with cough. Denies diarrhea and fever. No dysuria, testicular pain, or hematuria. States urination is normal. Past history notable for prior kidney stones, though current pain does not feel similar. Denies prior surgeries and denies history of diabetes, heart disease, or lung disease. Review of Systems Positive: abdominal pain, nausea, vomiting (single episode), chills, decreased appetite, cough. Negative: diarrhea, fever, dysuria, testicular pain, hematuria. Patient mentions a history of bleeding (context unclear). All other systems not discussed. Related Data Previous Rx's ?Medication ?Instructions ?Recorded nicotine (polacrilex) 2 mg buccal 2 mg buccal Q8H PRN nicotine 09/24/24 lozenge cravings #72 ea fluticasone propionate 50 1 spray intranasal DAILY #48 mL 10/19/24 mcg/actuation nasal spray,suspension cholecalciferol (vitamin D3) 25 25 mcg PO DAILY #90 caps 11/19/24 mcg (1,000 unit) capsule omeprazole 20 mg capsule,delayed 20 mg PO DAILY #90 caps 12/25/24 release cyclobenzaprine 5 mg tablet 5 mg PO BEDTIME #30 tabs 01/21/25 lidocaine 5 % topical patch 1 patch topical DAILY #30 ea 01/21/25 fexofenadine 180 mg tablet 180 mg PO DAILY #90 tabs 03/18/25 Allergies Allergy/AdvReac Type Severity Reaction Status Date / Time No Known Allergies Allergy Verified 06/21/25 18:58 PMFSH Past Medical History Surgical History History of hand surgery Social History Social History Housing: House Alcohol intake: current Alcohol intake frequency: holidays/special occasions only Patient Tobacco Use Status: Current everyday Tobacco user Tobacco use type: Cigarette Cigarette Packs Per Day: 0.25 Cigarettes Per Day: 2 Smoked in Last 30 Days: Yes e-Cigarette/Vaping Use: Never Used Second Hand Smoke Exposure: Yes Use of substances other than those prescribed or required for medical reasons: No Advance Directives: No Advance Directives Information Provided: Yes Do you have a plan to hurt others: No Plan service: No Current occupational status: employed 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 Head: Atraumatic Eyes: Anicteric, Normal conjunctiva. ENT: Moist mucosa, no pallor. ? Neck: Supple. Skin: ?No observable rash or bruising on exposed or examined skin Respiratory: Breathing comfortably, No distress.Clear to auscultation bilaterally, symmetric chest expansion, No wheeze, rales, ronchi. Cardiovascular: Regular rate and rhythm. No murmurs or rub. Well perfused periphery, warm extremities. No edema. ? Abdominal: Moderate lower abdominal tenderness. Soft, no objective distension. No palpable masses or obvious organomegaly. ?No guarding, no rebound tenderness or other peritoneal findings. : No flank tenderness. Neuro: Alert. Gross movement of all extremities intact. ? Psych: Calm. Cooperative. MSK: No grossly visible deformity. Vital signs: See flowsheet Vital Signs: Vital Signs - 24 hr 06/21/25 18:55 06/21/25 20:38 Temperature 99.0 F Pulse Rate 77 68 Respiratory Rate 20 18 Blood Pressure 133/86 127/95 H Pulse Oximetry 99 97 Oxygen Delivery Method Room Air Room Air BMI result Body Mass Index 28.7 Course Course Course Narrative: RmE: 34-year-old male presents to ED for lower abdominal pain bilaterally for couple of days. She denies any genitourinary symptoms. Medications Administered Discontinued Medications Generic Name Dose Route Start Last Admin Trade Name Freq PRN Reason Stop Dose Admin Iohexol 100 ml 06/21/25 21:36 06/21/25 21:36 Iohexol 350 Mg/Ml 100 Ml Infus..Btl IV 06/21/25 21:37 85 ml ONCE ONE Administration Ketorolac Tromethamine 15 mg 06/21/25 20:57 06/21/25 21:31 Ketorolac Tromethamine 15 Mg/Ml Vial IVPUSH 06/21/25 20:58 15 mg ONCE ONE Administration Medical Decision Making Medical Decision Making MDM Narrative: Medical Decision Making: [age] male no surgical history most history kidney stones lower abdominal pain tenderness worsened 3 days. No fever no diarrhea no GI bleeding Primarily concern for diverticulitis we will get CT Labs urinalysis reassuring CT results reviewed without any acute findings to explain the patient's symptoms Preliminary Favored Differential Diagnosis: Diverticulitis, appendicitis UTI enteritis musculoskeletal abdominal pain gas gastroenteritis among additional considered etiologies Testing Interpreted Independently: ?See below for details Radiology or Lab testing Results Reviewed: ?See below for details Consults: ?See below for details Independent Historians/External Chart Reviews: ?See below for details Social Determinants of Health Impacting MDM/Planning: ?See below for details Lab Data 06/21/25 19:33 06/21/25 19:33 Labs: Lab Results 06/21/25 06/21/25 Range/Units 19:33 21:09 WBC 12.0 H (4.8-10.8) X10*3/uL RBC 4.85 (4.60-5.80) X10*6/uL Hgb 14.6 (14.0-18.0) g/dl Hct 42.2 (42.0-52.0) % MCV 87.0 (80.0-98.0) fL MCH 30.1 (27.0-33.0) pg MCHC 34.6 (31.0-36.0) g/dl RDW 12.0 (11.0-16.0) % Plt Count 258 (160-400) X10*3/uL MPV 9.3 L (9.4-12.4) fL Immature Gran % (Auto) 0.2 (0.0-0.4) % Neut % (Auto) 68.2 (45-73) % Lymph % (Auto) 18.2 L (20-40) % [place] % (Auto) 8.3 (2-11) % Eos % (Auto) 4.6 H (0-4) % Baso % (Auto) 0.5 (0-2) % Lymph # (Auto) 2.2 (1.2-4.9) X10*3/uL [place] # (Auto) 1.0 (0.1-1.2) X10*3/uL Eos # (Auto) 0.6 H (0.0-0.4) X10*3/uL Baso # (Auto) 0.1 (0.0-0.2) X10*3/uL Abs Immat Gran (auto) 0.03 (0.00-0.03) X10*3/uL Absolute Neuts (auto) 8.2 (2.0-8.3) x10*3/uL Absolute Nucleated RBC 0.000 (0.0-0.012) X10*3/uL Nucleated RBC % (auto) 0.0 (0.0-0.2) /100WBC Sodium 141 (135-145) mmol/L Potassium 4.3 (3.3-5.1) mmol/L Chloride 106 (96-108) mmol/L Carbon Dioxide 27 (22-29) mmol/L Anion Gap 12 (12-20) BUN 18 H (9-16) mg/dL Creatinine 1.10 (0.5-1.4) mg/dL Estim Creat Clear Calc 98.9 Estimated GFR > 60 Random Glucose 116 H (60-115) mg/dL Calcium 9.6 (8.4-10.2) mg/dL Total Bilirubin 0.3 (0.0-1.0) mg/dL AST 28 (5-37) U/L ALT 32 (0-40) U/L Alkaline Phosphatase 120 H (39-117) U/L Total Protein 7.4 (6.5-8.0) g/dL Albumin 4.5 (3.5-5.0) g/dL Lipase 16 (8-78) U/L Urine Color Yellow Urine Appearance Clear Urine pH 6.0 (5.0-9.0) Ur Specific [place] 1.025 (1.005-1.025) Urine Protein Negative (Neg-Trace) mg/dL Urine Glucose (UA) Negative (Negative) mg/dL Urine Ketones Trace (Negative) mg/dL Urine Blood Negative (Negative) Urine Nitrite Negative (Negative) Ur Leukocyte Esterase Negative (Negative) Urine RBC 0-2 (0-2) /HPF Urine WBC 0-5 (0-5) /HPF Ur Squamous Epith Cells 0-2 (0-2) /HPF Calcium Oxalate Crystal Present Urine Bacteria None Seen (None Seen) Hyaline Casts 0-2 (0-2) /LPF Discharge Plan Discharge Clinical Impression: Abdominal pain Patient Disposition: Home, Self-Care Instructions: Abdominal Pain (ED) Additional Instructions: We do not find any particular findings on your imaging lab work or examination to explain your pain at this time call your PCP for follow up you can take Tylenol troponin use a warming had including your fluid in try 1 or 2 days of MiraLax [id number] laxative to see if that helps Prescriptions: No Action fluticasone propionate 50 mcg/actuation spray,suspension 1 spray intranasal DAILY Qty: 48 1RF cholecalciferol (vitamin D3) 25 mcg (1,000 unit) capsule 25 mcg PO DAILY Qty: 90 3RF lidocaine 5 % adhesive patch,medicated 1 patch topical DAILY Qty: 30 0RF Rx Instructions: leave on most painful area for up to 12 hrs cyclobenzaprine 5 mg tablet 5 mg PO BEDTIME Qty: 30 0RF fexofenadine 180 mg tablet 180 mg PO DAILY Qty: 90 0RF nicotine (polacrilex) 2 mg lozenge 2 mg buccal Q8H PRN (Reason: nicotine cravings) Qty: 72 0RF omeprazole 20 mg capsule,delayed release(DR/EC) 20 mg PO DAILY Qty: 90 1RF Interventions: ED Discharge Assessment Last Done: 06/21/25 22:47 Discharge Date/Time: 06/21/25 22:51 Print Language: Azeri
[2025-06-21 19:53] LABS: Alanine Aminotransferase 32 U/L (0-40); Albumin Level 4.5 g/dL (3.5-5.0); Alkaline Phosphatase 120 U/L (39-117); Anion Gap 12 (12-20); Aspartate Amino Transferase 28 U/L (5-37); Blood Urea Nitrogen 18 mg/dL (9-16); Calcium 9.6 mg/dL (8.4-10.2); Carbon Dioxide 27 mmol/L (22-29); Chloride 106 mmol/L (96-108); Creatinine Clr Calc Pharmacy 98.9; Estimated Glomerular Filt Rate > 60; Lipase 16 U/L (8-78); Potassium 4.3 mmol/L (3.3-5.1); Sodium 141 mmol/L (135-145); Total Protein 7.4 g/dL (6.5-8.0)
[2025-06-21 20:38] VITALS: BP 127/95; PULSE 68; RESP 18; O2SAT 97
[2025-06-21 21:15] LABS: Appearance Urine Clear; Glucose Urine UA Negative (Negative); PH 6.0 (5.0-9.0); Specific Gravity - Urine 1.025 (1.005-1.025)
[2025-06-21] MEDS: iohexoL 350 MG/ML 100 ML INFUS..BTL IV (21:36)
[2025-06-21 22:47] VITALS: BP 127/95; PULSE 68; RESP 18; TEMP 36.7; O2SAT 97
== END 2025-06-21 22:51 | disposition home or self-care (01) ==
PROVIDERS: Emergency Provider Emergency Medicine
DX: R10.30 Lower abdominal pain, unspecified (principal); R11.2 Nausea with vomiting, unspecified; R05.9 Cough, unspecified; Z79.899 Other long term (current) drug therapy
CPT/HCPCS: 36415; 74177; 80053; 81001; 83690; 85025; 96374; 99284; J1885; Q9967

== ENCOUNTER → 2025-06-21 20:57 | Outpatient (BNV) | payer OTHER, SELFPAY | PROVIDERS: Emergency Provider Emergency Medicine; Visit Provider Radiology Diagnostic Radiology | DX: R10.814 Left lower quadrant abdominal tenderness (principal) | CPT/HCPCS: 74177 ==